=== PATIENT | male | born 1995 | race Caucasian/White ===

== ENCOUNTER 2017-07-04 01:28 | Emergency (ER) | payer OTHER ==
[~2017-07-04] VITALS: Ht 180.3 cm; Wt 81.6 kg
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
[2017-07-04] MEDS ORDERED: MVI, ADULT NO.4 WITH VIT K 10 ML VIAL IV ONE (02:03)
[2017-07-04] MEDS ORDERED: FOLIC ACID 5 MG/ML SYRINGE for ER IV ONE (02:03)
[2017-07-04] MEDS ORDERED: THIAMINE 200 MG/2 ML VIAL. IV ONE (02:03)
[2017-07-04] MEDS ORDERED: ONDANSETRON PF 4 MG/2 ML VIAL. IV ONE (02:15)
[2017-07-04] MEDS ORDERED: HALOPERIDOL LACT 5 MG/ML VIAL. ONE (02:29)
[2017-07-04] MEDS ORDERED: HALOPERIDOL LACT 5 MG/ML VIAL. IM ONE (02:30)
[2017-07-04] MEDS ORDERED: LORazepam 2 MG/ML VIAL ONE (02:30)
[2017-07-04] MEDS ORDERED: LORazepam 2 MG/ML VIAL IV ONE (02:30)
[2017-07-04] MEDS ORDERED: MVI, ADULT NO.4 WITH VIT K 10 ML, FOLIC ACID SYRINGE for ER 1 MG, THIAMINE 100 MG in IV... IV SCH ×4 (02:30)
[2017-07-04] MEDS ORDERED: LORazepam 2 MG/ML VIAL IM ONE (02:45)
[2017-07-04 02:56] LABS: BASO % 0 % (0-3); EOS % 0 % (0-3); HEMATOCRIT 44.9 % (39.0-53.0); HEMOGLOBIN 15.5 g/dL (13.0-17.5); LYMPH # 1.9 x10^3/uL (1.0-4.8); LYMPH % 15 % (24-48); MEAN CORPUSCULAR HEMOGLOBIN 31 pg (25-35); MEAN CORPUSCULAR HGB CONC 35 g/dL (31-37); MEAN CORPUSCULAR VOLUME 90 fL (79-100); MONO # 0.8 x10^3/uL (0.0-1.1); MONO % 7 % (0-9); NEUT % 78 % (31-73); PLATELET COUNT 393 x10^3/uL (140-400); RED BLOOD COUNT 4.98 x10^6/uL (4.30-5.70); RED CELL DISTRIBUTION WIDTH 12.5 % (11.5-14.5); WHITE BLOOD COUNT 12.9 x10^3/uL (4.0-11.0)
[2017-07-04 03:03] LABS: BARBITURATES NEG (NEG); BENZODIAZEPINES NEG (NEG); CANNABINOIDS NEG (NEG); COCAINE NEG (NEG); METHADONE NEG (NEG); OPIATES NEG (NEG); PHENCYCLIDINE NEG (NEG)
[2017-07-04 03:04] LABS: BACTERIA,URINE FEW /HPF (0-FEW); BILIRUBIN,URINE NEG (NEG); CLARITY,URINE CLEAR; COLOR,URINE STRAW; GLUCOSE,URINE NEG (NEG); NITRITE,URINE NEG (NEG); RBC,URINE RARE /HPF (0-2); UROBILINOGEN,URINE 0.2 mg/dL (0.2 mg/dL); WBC,URINE RARE /HPF (0-4)
[2017-07-04 03:05] LABS: AMPHETAMINE/METHAMPHETAMINE NEG (NEG)
[2017-07-04 03:09] LABS: ALBUMIN 4.1 g/dL (3.4-5.0); CALCIUM 8.4 mg/dL (8.5-10.1); CREATININE 1.2 mg/dL (0.7-1.3); TOTAL BILIRUBIN 0.4 mg/dL (0.2-1.0); TOTAL PROTEIN 7.4 g/dL (6.4-8.2)
[2017-07-04] MEDS ORDERED: IV NORMAL SALINE 1,000ML 1,000 ML IV ONE (03:15)
[2017-07-04 03:23] LABS: % BANDS 1 % (0-9); % BASOS 1 % (0-3); % LYMPHS 20 % (24-48); % MONOS 3 % (0-10); % SEGS 75 % (35-66)
[2017-07-04 03:24] LABS: PLT ESTIMATE ADEQUATE (ADEQUATE); TOXIC GRANULATION SLIGHT
[2017-07-04] MEDS ORDERED: METO10TA81 PO (03:34)
[2017-07-04 03:52] LABS: DIRECT BILIRUBIN 0.1 mg/dL (0.0-0.2); POTASSIUM 3.7 mmol/L (3.5-5.1)
[2017-07-04 04:45] VITALS: BP 109/63
== END 2017-07-04 05:15 | disposition home or self-care (01) ==
LOC: ER 01:28
DX: F10.129 Alcohol abuse with intoxication, unspecified (principal); R11.10 Vomiting, unspecified; D72.829 Elevated white blood cell count, unspecified; F17.210 Nicotine dependence, cigarettes, uncomplicated
CPT/HCPCS: 36415; 51701; 80048; 80076; 80307; 81001; 83735; 85007; 85025; 96361; 96365; 96372; 96375; 99284; G0480; J1630; J2060; J2405; G0479; J7030